=== PATIENT | male | born 1930 | race Caucasian/White ===

== ENCOUNTER 2016-12-27 19:14 | Emergency (ER) | payer OTHER, MEDICARE ==
[~2016-12-27] VITALS: Ht 180.3 cm; Wt 70.0 kg
[~2016-12-27 19:14] MED LIST: ARICEPT5 MG PO; ASPIRIN EC325 MG PO; CARDIZEM SR60 MG PO; CARDIZEM60 MG PO; COUMADIN,JANTOVE5 MG PO; COUMADIN5 MG PO; DILTIAZEM ER60 MG PO; EXELON PATCH9.5 MG TD; FLOMAX0.4 M1 PO; FLOMAX0.4 MG PO; GENTEAL MODERAT25 ML BOTH EYES; LANOXIN,DIGI0.125 MG PO; LANOXIN125 MCG PO; PAROXETINE HCL20 MG PO; PRAVACHOL10 MG PO; TYLENOL REGULA325 MG PO; WARFARIN SODIUM5 MG PO
[2016-12-27 20:27] LABS: HEMATOCRIT 34.1 % (38.0-50.0); MCH 33.2 PG (29.0-34.0); MCHC 33.1 G/DL (30.0-36.0); MCV 100.3 FL (86-99); MEAN PLAT.VOLUME 10.8 uM^3 (9.0-12.4); PLATELET COUNT 222 K/uL (156-360); RBC DIS.WIDTH-CV 13.2 % (11.8-14.6); RBC DIS.WIDTH-SD 48.8 % (39-53)
[2016-12-27 20:53] LABS: GLUCOSE 123 mg/dL (70-99)
[2016-12-27 20:55] LABS: ANION GAP 8 MEQ/L (2-14)
[2016-12-27 20:56] LABS: TROP-I INTERPRETATION NEGATIVE; TROPONIN-I < 0.01 ng/mL (0.0-0.30)
[2016-12-27 20:57] LABS: GFR ESTIMATE (CALCULATED) > 59 mL/min/
[2016-12-27 20:58] LABS: UREA NITROGEN (BUN) 24 mg/dL (9-23)
[2016-12-27 21:23] LABS: CHLORIDE 105 mEq/L (99-109); POTASSIUM 4.2 mEq/L (3.7-5.4); SODIUM 139 mEq/L (136-147)
[2016-12-27 21:46] LABS: ADD MIUA? NO; BILIRUBIN NEGATIVE; BLOOD NEGATIVE; COLOR YELLOW ((YELLOW)); GLUCOSE (STRIP) NEGATIVE; KETONES NEGATIVE; LEUKOCYTES NEGATIVE; NITRITE NEGATIVE; PROTEIN (STRIP) NEGATIVE; SPECIFIC GRAVITY 1.027 (1.000-1.030); UCUL ADDED? NO
[2016-12-27 22:28] VITALS: BP 148/64
== END 2016-12-27 22:43 | disposition home or self-care (01) ==
LOC: EME 19:14
PROVIDERS: Emergency Medicine
DX: R51 Headache (principal); W18.30XA Fall on same level, unspecified, initial encounter; Y92.199 Unspecified place in other specified residential institution as the place of occurrence of the external cause; F03.90 Unspecified dementia, unspecified severity, without behavioral disturbance, psychotic disturbance, mood disturbance, and anxiety; Z79.82 Long term (current) use of aspirin; I10 Essential (primary) hypertension; I48.91 Unspecified atrial fibrillation; Z87.891 Personal history of nicotine dependence
CPT/HCPCS: 70450; 71020; 80048; 81003; 84484; 85027; 93005; 99281; 99284

== ENCOUNTER 2018-02-19 16:39 | Observation (INO) | payer OTHER, MEDICARE ==
[~2018-02-19] VITALS: Ht 182.9 cm; Wt 74.8 kg
[~2018-02-19 16:39] MED LIST changes: -FLOMAX0.4 M1 PO
[2018-02-19 17:30] LABS: BASOPHIL (%) 0.1 % (0-1); EOSINOPHIL (%) 0.5 % (0-5); EOSINOPHIL COUNT 0.1 K/uL (0-0.3); HEMATOCRIT 38.4 % (38.0-50.0); HEMOGLOBIN 13.4 G/DL (12.5-16.6); IMMATURE GRANULOCYTE (%) 0.4 % (0.0-0.7); LYMPHOCYTE (%) 4.6 % (15-42); LYMPHOCYTE COUNT 0.7 K/uL (1.0-2.8); MCH 32.8 PG (29.0-34.0); MCHC 34.9 G/DL (30.0-36.0); MCV 93.9 FL (86-99); MONOCYTE (%) 3.6 % (3-12); MONOCYTE COUNT 0.5 K/uL (0-0.8); NEUTROPHIL (%) 90.8 % (45-76); NEUTROPHIL COUNT 13.5 K/uL (1.8-6.4); PLATELET COUNT 274 K/uL (156-360); RBC DIS.WIDTH-CV 12.8 % (11.8-14.6); RBC DIS.WIDTH-SD 44.1 % (39-53); RED BLOOD COUNT 4.09 M/uL (4.00-5.50); WHITE BLOOD COUNT 14.9 K/uL (4.1-10.2)
[2018-02-19 17:47] LABS: INTER. NORMALIZED RATIO 1.2
[2018-02-19 17:50] LABS: PTT 29.6 SEC (25-37)
[2018-02-19 17:51] LABS: CHLORIDE 99 mEq/L (99-109); POTASSIUM 4.1 mEq/L (3.7-5.4); SODIUM 135 mEq/L (136-147)
[2018-02-19 17:53] LABS: GLUCOSE 252 mg/dL (70-99); TOTAL PROTEIN 7.7 g/dL (6.4-8.3)
[2018-02-19 17:55] LABS: TOTAL BILIRUBIN 1.3 mg/dL (0.0-1.0)
[2018-02-19 17:57] LABS: ALKALINE PHOSPHATASE 187 IU/L (3-129); GFR ESTIMATE (CALCULATED) > 59 mL/min/ (58.99-99999)
[2018-02-19 17:58] LABS: AST (GOT) 13 IU/L (2-34); DIRECT BILIRUBIN 0.5 mg/dL (0.0-0.3); TROP-I INTERPRETATION NEGATIVE; TROPONIN-I < 0.01 ng/mL (0.0-0.30); UREA NITROGEN (BUN) 23 mg/dL (9-23)
[2018-02-19 18:00] LABS: ALT (GPT) 10 IU/L (3-49); LIPASE 22 U/L (1.0-51.0)
[2018-02-19] MEDS ORDERED: TYLENOL REGULA325 MG PO (20:39)
[2018-02-19] MEDS ORDERED: ATIVAN0.5 MG PO (20:40)
[2018-02-19] MEDS ORDERED: IMODIUM A-D2 M2 PO (20:40)
[2018-02-19] MEDS ORDERED: METAMUCIL POWD822 G1 PO (20:42)
[2018-02-19] MEDS ORDERED: GENTEAL TEARS 015 M1 BOTH EYES (20:44)
[2018-02-19] MEDS ORDERED: GLIPIZIDE5 MG PO (20:48)
[2018-02-19] MEDS ORDERED: ADULT ASPIRIN R81 MG PO (20:49)
[2018-02-20 00:27] VITALS: BP 138/81
[2018-02-20 03:53] VITALS: BP 140/84
[2018-02-20 07:39] VITALS: BP 120/70
[2018-02-20 11:18] VITALS: BP 131/60
[2018-02-20 15:57] VITALS: BP 122/73
== END 2018-02-20 18:05 | disposition hospice, home (50) ==
LOC: EME 16:39 → 4SOUTH 22:34 → EDOF 22:34 → 4SOUTH 22:34 → EDOF 22:34 → ENRESERV 22:38 → 4SOUTH 23:43
PROVIDERS: Emergency Medicine
DX: K56.600 Partial intestinal obstruction, unspecified as to cause (principal); Z51.5 Encounter for palliative care; F03.90 Unspecified dementia, unspecified severity, without behavioral disturbance, psychotic disturbance, mood disturbance, and anxiety; E86.0 Dehydration; D72.829 Elevated white blood cell count, unspecified; I48.2 Chronic atrial fibrillation; Z66 Do not resuscitate; Z74.01 Bed confinement status; E11.65 Type 2 diabetes mellitus with hyperglycemia; M19.90 Unspecified osteoarthritis, unspecified site; Z87.19 Personal history of other diseases of the digestive system; N40.0 Benign prostatic hyperplasia without lower urinary tract symptoms; H91.92 Unspecified hearing loss, left ear; Z79.82 Long term (current) use of aspirin; Z79.84 Long term (current) use of oral hypoglycemic drugs; Z88.8 Allergy status to other drugs, medicaments and biological substances
CPT/HCPCS: 74174; 80048; 80076; 81003; 83605; 83690; 84484; 85025; 85610; 85730; 86850; 86900; 86901; 93005; 99281; 99285; G0378; J2270; J2405; J7040